=== PATIENT | male | born 1985 | race Caucasian/White ===

== ENCOUNTER 2019-05-09 06:56 | Emergency (ER) | payer SELFPAY ==
[2019-05-09] MEDS ORDERED: Azithromycin 250 MG TAB ONE (07:32)
[2019-05-09] MEDS ORDERED: Lidocaine 1% 20 ML MDV ONE (07:32)
[2019-05-09] MEDS ORDERED: cefTRIAXone\\ROCEPHIN 500 MG VIAL ONE (07:32)
== END 2019-05-09 07:55 | disposition home or self-care (01) ==
LOC: MADERS 06:56
DX: Z20.2 Contact with and (suspected) exposure to infections with a predominantly sexual mode of transmission (principal); F17.210 Nicotine dependence, cigarettes, uncomplicated
CPT/HCPCS: 96372; 99283; J0696; J2001

== ENCOUNTER 2019-11-17 09:37 | Emergency (ER) | payer SELFPAY ==
[~2019-11-17 09:37] MED LIST: Sodium Chloride 0.9% 100 ML BAG ONE
[2019-11-17] MEDS ORDERED: Morphine 4 MG/ML VIAL ONE (09:58)
[2019-11-17] MEDS ORDERED: CEFAZOLIN 1 GM VIAL ONE (09:58)
[2019-11-17] MEDS ORDERED: Adacel (T-DAP) 0.5 ML SYRINGE ONE (09:58)
--- NOTE | 2019-11-17 10:11 | RAD ---
XR Hand Rt 3 View STANDARD History: Shot with nail gun Comparison: None. Findings: There is a nail through the third and fourth fingers which is difficult to tell if this oss eous or soft tissue although no displaced fractures appreciated. Impression: Nail through the third and fourth fingers, the middle and ring finger, without displaced fracture appreciated. Is difficult to tell on these images if the nail is within bone or just the palmar soft tissues.
[2019-11-17] MEDS ORDERED: Lidocaine 1% w/Epinephrine 1:100K 20 ML VIAL ONE (10:29)
--- NOTE | 2019-11-17 11:02 | RAD ---
EXAM: 3 views of the right hand COMPARISON: 11/17/2019 HISTORY: Removal of nail from hand FINDINGS: 3 views of the hand shows no evidence of acute fracture or dislocation. No degenerative evert nges are seen. Index finger and middle finger soft tissue swelling is present. No radiopaque foreign body is seen. IMPRESSION: No significant osseous abnormality
== END 2019-11-17 11:25 | disposition home or self-care (01) ==
LOC: MADERS 09:37
DX: S61.242A Puncture wound with foreign body of right middle finger without damage to nail, initial encounter (principal); S61.244A Puncture wound with foreign body of right ring finger without damage to nail, initial encounter; F17.210 Nicotine dependence, cigarettes, uncomplicated; W45.8XXA Other foreign body or object entering through skin, initial encounter
CPT/HCPCS: 90471; 90715; 96365; 96375; J0690; J2270; J3490

== ENCOUNTER 2020-01-19 17:56 | Emergency (ER) | payer SELFPAY ==
[2020-01-19 18:55] LABS: #Basophils 0.1 thou/uL (0.0-0.2); #Eosinphils 0.2 thou/uL (0.0-0.7); #Lymphocytes 2.4 thou/uL (1.20-3.40); #Monocytes 0.5 thou/uL (0.11-0.59); %Basophils 1.1 % (0.0-1.0); %Eosinophils 1.7 % (0.0-10.0); %Monocytes 4.9 % (0.0-10.0); %Neutrophils 66.3 % (42.0-75.0); Hemoglobin 12.8 g/dL (14.0-18.0); Mean Corpuscular HGB CONC 32.5 g/dL (32.0-36.0); Mean Corpuscular Hemoglobin 28.7 pg (27.0-31.0); Mean Corpuscular Volume 88.3 fL (78.0-98.0); Mean Platelet Volume 7.6 fL (7.4-10.4); Platelet Count 280 thou/uL (130-400); RBC Distribution Width 13.2 % (11.5-14.5); Red Blood Cell (RBC) Count 4.45 mill/uL (4.70-6.10)
[2020-01-19 19:10] LABS: ALT (SGPT) 19 U/L (8-55); AST (SGOT) 16 U/L (5-34); Albumin 4.3 g/dL (3.5-5.0); Alkaline Phosphatase 53 U/L (40-110); Anion Gap 15 mmol/L (10-20); BUN (Urea Nitrogen) 11 mg/dL (8.9-20.6); Bilirubin, Total 0.3 mg/dL (0.2-1.2); Calc. Creatinine Clearance 0 mL/min (70-130); Calcium 8.9 mg/dL (7.8-10.44); Carbon Dioxide 22 mmol/L (22-29); Chloride 109 mmol/L (98-107); Estimated GFR-MDRD Greater than 90; Globulin 2.6 g/dL (2.4-3.5); Glucose 97 mg/dL (70-105); Potassium 3.9 mmol/L (3.5-5.1); Protein, Total 6.9 g/dL (6.0-8.3); Sodium 142 mmol/L (136-145)
--- NOTE | 2020-01-19 19:14 | RAD ---
XR Chest 1 View Portable History: Syncope Comparison: None. Findings: Lungs are clear. No pneumothorax or effusion. Cardiac silhouette and mediastinal contours a re within normal limits. No acute osseous abnormality. Impression: No acute intrathoracic abnormality.
== END 2020-01-19 19:34 | disposition home or self-care (01) ==
LOC: MADERS 17:56
DX: R55 Syncope and collapse (principal); F17.210 Nicotine dependence, cigarettes, uncomplicated
CPT/HCPCS: 36415; 71045; 80053; 83880; 84484; 85025; 93005

== ENCOUNTER 2020-07-08 11:12 | Emergency (ER) | payer SELFPAY ==
[2020-07-08 23:33] LABS: SARS-CoV-2 PCR by NAA DETECTED (NotDetected)
== END 2020-07-08 11:55 | disposition home or self-care (01) ==
LOC: MADERS 11:12
DX: U07.1 COVID-19 (principal); F17.210 Nicotine dependence, cigarettes, uncomplicated
CPT/HCPCS: 87635; 99283; U0003; U0005

== ENCOUNTER 2021-05-21 01:14 | Emergency (ER) | payer OTHER, SELFPAY ==
[2021-05-21] MEDS ORDERED: Cephalexin 500 MG CAP ONE (01:40)
== END 2021-05-21 01:59 | disposition home or self-care (01) ==
LOC: MADERS 01:14
DX: S69.91XA Unspecified injury of right wrist, hand and finger(s), initial encounter (principal); F17.210 Nicotine dependence, cigarettes, uncomplicated
CPT/HCPCS: 99282